=== PATIENT | male | born 1985 | race Caucasian/White ===

== ENCOUNTER 2020-01-07 17:38 | Emergency (ER) | payer OTHER, SELFPAY ==
[2020-01-07 17:50] VITALS: BP 146/86; PULSE 105; RESP 18; TEMP 36.6; O2SAT 99
--- NOTE | 2020-01-07 18:34 | ED.GENADULT ---
HPI - General Adult General Chief complaint: Urogenital-Male Stated complaint: discharge/pain when urinating Source: patient Mode of arrival: ambulatory Limitations: no limitations History of Present Illness HPI narrative: 34 y/o male. PMH includes: None reported. Presents to Urgent Care clinic today with acute complaints of yellow penile discharge and penile tip irritation for the past 3 days. He is requesting STD check , stating that his sexual partner has had some vaginal discharge and issues. Client admits to unprotected sexual intercourse. He denies fever, chills, abdominal pain, flank pain. No hematuria, No testicular pain or swelling. No external genital lesions. He is without additional acute c/o upon PE. Related Data Allergies Allergy/AdvReac Type Severity Reaction Status Date / Time No Known Allergies Allergy Verified 01/07/20 18:10 Review of Systems Review of Systems: Narrative: CONSTITUTIONAL: Denies fever, chills, sweats. EYES: Denies visual changes, redness, discharge. ENT: Denies rhinorrhea, congestion, sore throat, otalgia. CARDIOVASCULAR: Denies chest pain, palpitations, edema. RESPIRATORY: Denies dyspnea, wheezing, cough GASTROINTESTINAL: Denies abdominal pain, nausea, vomiting, diarrhea. GENITOURINARY: Positive abnormal discharge. SKIN: Denies rash or itching. MUSCULOSKELETAL: Denies acute back pain, joint pain, or myalgia. NEUROLOGIC: Denies numbness, or focal weakness. PSYCHIATRIC: Denies anxiety or depression. Exam Narrative: Exam Narrative: GENERAL: This is a well-nourished, well-developed patient, in no apparent distress. HEAD: normocephalic, atraumatic. EYES: PERRL. Sclera clear/white. Vision is grossly intact. EARS: External ears normal, auditory canals clear and without drainage, TMs normal without perforation. Hearing grossly intact. NOSE: External nose normal with no obvious nasal discharge, nares without redness, no rhinorrhea. THROAT: Mucous membranes moist, posterior pharynx clear. NECK: Neck supple, non-tender without lymphadenopathy, masses or thyromegaly. CARDIOVASCULAR: Regular rate and rhythm without murmurs, gallops, or rubs. RESPIRATORY: Clear to auscultation. Breath sounds equal bilaterally. No wheezes, rales, or rhonchi. GASTROINTESTINAL: Abdomen soft, non-tender, nondistended. Bowel sounds are active. No hepato-splenomegaly, or palpable masses. No guarding. SKIN: warm, intact with no suspicious lesions or rash, good texture and turgor. NEURO: awake, alert, and oriented to person, place and time. There were no obvious focal neurologic abnormalities. Steady gait EXTREMITIES: Normal range of motion. No edema. No calf tenderness. Negative Homans sign bilaterally. BACK: Nontender without deformity or crepitance. No flank tenderness. NEURO: Alert and oriented x4. Course Course Emergency Course: Laboratory studies reviewed. POC, AVS, and medication instructions have been reviewed. Safe sex practices also reviewed and advised. Client given additional resources for local Health dept. Vital Signs Vital signs: Vital Signs Temperature 36.6 C 01/07/20 17:50 Pulse Rate 105 H 01/07/20 17:50 Respiratory Rate 18 01/07/20 17:50 Blood Pressure 146/86 H 01/07/20 17:50 Pulse Oximetry 99 01/07/20 17:50 Temperature 36.6 C 01/07/20 17:50 Pulse Rate 105 H 01/07/20 17:50 Respiratory Rate 18 01/07/20 17:50 Blood Pressure 146/86 H 01/07/20 17:50 Pulse Oximetry 99 01/07/20 17:50 Medical Decision Making Differential Diagnosis Differential Diagnosis: Differential Diagnosis: Consideration of the following conditions may be warranted for the presenting problem, they are not final diagnoses: Cystitis, Nephritis, candidiasis, epididymitis, STD, syphilis, herpes Medical Records Medical records reviewed: Yes I reviewed the patient's medical records. Vital Signs Vital Signs: Vital Signs Temperature 36.6 C 01/07/20 17:50 Pulse Rate 105 H 01/07/20 17:50 Respi
[2020-01-07] MEDS: AZITHROMYCIN 250 MG TABLET 1000 MG PO (19:12)
[2020-01-07] MEDS: cefTRIAXone 250 MG VIAL IM (19:13)
[2020-01-07] MEDS: LIDOCAINE HCL 1% LOCAL INJ 20 ML VIAL IM (19:14)
== END 2020-01-07 19:30 | disposition home or self-care (01) ==
PROVIDERS: Emergency Provider Nurse Practitioner Adult Health; PCP Family Medicine
DX: Z20.2 Contact with and (suspected) exposure to infections with a predominantly sexual mode of transmission (principal); Z72.51 High risk heterosexual behavior
CPT/HCPCS: 81003; 87086; 87491; 87591; 87661; 96372; 99213; A9270; G0463; J0696

== ENCOUNTER 2020-09-14 11:26 | Emergency (ER) | payer OTHER, SELFPAY ==
[2020-09-14 11:32] VITALS: BP 144/94; PULSE 102; RESP 18; TEMP 36.9; O2SAT 100
[2020-09-14 11:52] VITALS: BP 144/94; PULSE 102; RESP 18; TEMP 36.9; O2SAT 100
--- NOTE | 2020-09-14 11:56 | ED.SKABFB ---
HPI - Skin/Abscess/Foreign Bdy General Chief complaint: Skin/Abscess/Foreign Body Stated complaint: left thigh bite/cyst on neck Time Seen by Provider: 09/14/20 11:56 Source: patient Mode of arrival: ambulatory Limitations: no limitations History of Present Illness HPI narrative: Nelson Juarez is a 35 yo male with with known hypertension, [facility] a bite on his left anterior thigh and enlarged lymph node on the left side underneath his chin. States he has no primary care doctor and has been traveling [place] and he lives in an . He is under a lot of stress and has not taken any blood pressure medication for quite a while Related Data Allergies Allergy/AdvReac Type Severity Reaction Status Date / Time No Known Allergies Allergy Verified 09/14/20 11:50 Review of Systems Review of Systems: CONSTITUTIONAL: Denies fever, chills, sweats. EYES: Denies visual changes, redness, discharge. ENT: Denies rhinorrhea, congestion, sore throat, otalgia. CARDIOVASCULAR: Denies chest pain, palpitations, edema. RESPIRATORY: Denies dyspnea, wheezing, cough GASTROINTESTINAL: Denies abdominal pain, nausea, vomiting, diarrhea. GENITOURINARY: Denies dysuria, hematuria, abnormal discharge SKIN: Denies rash or itching. NEUROLOGIC: Denies numbness, or focal weakness. PSYCHIATRIC: Denies anxiety or depression. Enlarged lymph node left submandibular, bite/reddened area anterior left thigh PMFSH Past Medical History Medical History Hypertension Family History Family History Other Diabetes mellitus Heart disease Social History Social History (Updated 09/14/20 @ 12:29 by Elizabeth Farah CNP) Smoking status: Never smoker Alcohol intake: current Comments At time of signature, I agree with nursing past medical, surgical, social and family history. There is no relevant family history pertinent to the presenting complaint. Exam Narrative: GENERAL: This is a well-nourished, well-developed patient, in mild distress. HEAD: normocephalic, atraumatic. EYES: Sclera clear/white. Vision is grossly intact. EARS: External ears normal, Hearing grossly intact. NOSE: External nose normal without nasal discharge, nares without redness, no rhinorrhea. THROAT: Mucous membranes moist, NECK: Neck supple, 2 x 2 enlarged submandibular lymph node, nontender CARDIOVASCULAR: Regular rate and rhythm without murmurs, gallops, or rubs. RESPIRATORY: Clear to auscultation. Breath sounds equal bilaterally. No wheezes, rales, or rhonchi. GASTROINTESTINAL: Abdomen soft, SKIN: warm, intact with no suspicious lesions or rash, good texture and turgor. Reddened area about 4 x 6 on the anterior portion of his left thigh NEURO: awake, alert, and oriented to person, place and time. There were no obvious focal neurologic abnormalities. Steady gait EXTREMITIES: Normal range of motion. BACK: Nontender without deformity Course Course Emergency Course: Patient comes with enlarged area under chin and painful indurated area on the left thigh Blood pressure is also elevated and he has no blood pressure medication Lisinopril restarted on patient Discussed cellulitis on his left thigh and treatment with Bactrim and Keflex Will need antibiotics and possible excision of that lymph node if it does not resolve under his left chin Referral to her primary care doctor Vital Signs Vital signs: Vital Signs Temperature 98.5 F 09/14/20 11:32 Pulse Rate 102 H 09/14/20 11:32 Respiratory Rate 18 09/14/20 11:32 Blood Pressure 144/94 H 09/14/20 11:32 Pulse Oximetry 100 09/14/20 11:32 Temperature 98.5 F 09/14/20 11:52 Pulse Rate 102 H 09/14/20 11:52 Respiratory Rate 18 09/14/20 11:52 Blood Pressure 144/94 H 09/14/20 11:52 Pulse Oximetry 100 09/14/20 11:52 MDM - Skin/Abscess/Foreign Bdy Differential Diagnosis
== END 2020-09-14 12:42 | disposition home or self-care (01) ==
PROVIDERS: Emergency Provider Nurse Practitioner
DX: L04.0 Acute lymphadenitis of face, head and neck (principal); L03.116 Cellulitis of left lower limb
CPT/HCPCS: 99213; G0463

== ENCOUNTER 2024-05-30 16:56 | Emergency (ER) | payer BC, MEDICAID, SELFPAY ==
--- OUTSIDE RECORDS SUMMARY | 2024-05-30 16:58 | XMS_ITS | Continuity of Care Document ---
Author Organization [facility]. If a dditional information is needed, contact Health Information Management at [phone] Address [address] [place] [address] Phone Care Team Providers Care Miter Grinder Operator Name Role Phone Unavailable Unavailable Unavailable Unavailable Unavailable Unavailable Unavailable Unavailable Unavailable Unavailable Unavailable Unavailable Unavailable Unavailable Unavailable Unavailable Unavailable Unavailable Unavailable Unavailable Unavailable Problems Alcohol abuse Onset:25-Dec-2021 Klaus Salazar MD Alcohol abuse Onset:07-Sep-2021 Ximena Kee MD Suicidal thoughts Onset:31-Aug-2021 Day Cary SCHREIBER Alcohol intoxication Onset:31-Aug-2021 Day Cary SCHREIBER Allergies and Adverse Reactions No Known Allergies(Allergy) Onset: 25-Dec-2021 No Known Allergies(Allergy) Onset: 18-Dec-2010 Social History Smoking Status Never smoked tobacco Recorded: 25-Dec-2021 Never smoked tobacco Recorded: 05-Sep-2021 Occasional tobacco smoker Recorded: 30-Aug-2021
--- OUTSIDE RECORDS SUMMARY | 2024-05-30 16:58 | XMS_ITS | Referral Summary ---
Author Organization [facility] Address [address] [place] [address] Care Team Providers Care Email Designer Name Role Phone Tad Metcalf MD Primary Care Provider [phone] Lea Bryant PT Unavailable Unavailable Lori Villeda LOAN ASSISTANT Unavailable Unavailable Fred Zamora MD Unavailable [phone] Allergies No known active allergies Medications diclofenac potassium (ZIPSOR) 25 mg capsule take 1 capsule by oral route 4 times every day 0 0 7 Active venlafaxine XR (EFFEXOR-XR) 75 mg 24 hr capsule take 1 capsule by oral route every day with food 0 0 7 Active metoprolol XL (TOPROL-XL) 100 mg 24 hr tablet take 1 tablet by oral route every day 0 0 7 Active aspirin 325 mg tablet take 1 tablet by oral route every day 0 0 7 Active aspirin 325 mg tablet Take 325 mg by mouth. 6 Active buPROPion XL (WELLBUTRIN XL) 150 mg 24 hr tablet 7 Active chlordiazePOXID E (LIBRIUM) 25 mg capsule Day 1: Take 50mg every 6 hours as needed for anxiety or withdrawal symptoms; if still anxious 1hr after taking 50mg, may take another 50mg; so, take 50mg to 100mg every six hours as needed. Day 2: 50-100mg every 8 hours as needed Day 3: 50-100mg every 12 hours as needed Day 4: 50-100mg at bedtime 6 Active clindamycin (CLEOCIN T) 1 % external solution 7 Active diclofenac (CATAFLAM) 50 mg tablet 7 Active lisinopril (PRINIVIL,ZESTR [place]) 5 mg tablet Take 5 mg by mouth. 6 Active metoprolol (LOPRESSOR) 100 mg tablet 7 Active metoprolol (LOPRESSOR) 50 mg tablet Take 100 mg by mouth. 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 Gender Identity Not on file Sexual Orientation Not on file Last Filed Vital Signs Vital Sign Reading Time Taken Comments Blood Pressure 138/76 07/25/2017 10:38 AM CDT Pulse 76 07/25/2017 10:38 AM CDT Temperature - - Respiratory Rate - - Oxygen Saturation - - Inhaled Oxygen Concentration - - Weight 109.8 kg (242 lb) 07/25/2017 10:38 AM CDT Height 188 cm (6' 2 ) 07/25/2017 10:38 AM CDT Body Mass Index 31.07 07/25/2017 10:38 AM CDT Plan of Treatment Not on file Insurance [facility] Care Teams Email Designer Relationship Specialty Start Date End Date Tad Metcalf MD PCP - General 04/20/16 Lea Bryant, PT Physical Therapist Physical Therapy 01/26/17 Lori Villeda, LOAN ASSISTANT Physical Therapist Physical Therapy 02/02/17 Fred Zamora MD [address] [place] [address] [address] [address] Surgeon Orthopedic Surgery 03/01/17
--- OUTSIDE RECORDS SUMMARY | 2024-05-30 16:58 | XMS_ITS | Clinical Summary ---
Author Organization [facility] Address [address] [place] [address] Care Team Providers Care Primer Inspector Name Role Phone Tad Metcalf MD Primary Care Provider [phone] Lea Bryant PT Unavailable Unavailable Lori Villeda LOGGING EQUIPMENT OPERATOR Unavailable Unavailable Fred Zamora MD Unavailable [phone] Allergies No known active allergies Medications diclofenac [...] 50 mg tablet 7 Active lisinopril (PRINIVIL,ZESTR DE) 5 mg tablet Take 5 mg by mouth. 6 Active metoprolol (LOPRESSOR) 100 mg tablet 7 Active metoprolol (LOPRESSOR) 50 mg tablet Take 100 mg by mouth. 6 Active venlafaxine XR (EFFEXOR-XR) 150 mg 24 hr capsule 8 Active zolpidem (AMBIEN) 10 mg tabletIndicatio ns:Sleep-Onset Insomnia 1 7 Active Active Problems No known active problems Surgical History Surgery Date Site/Laterality Comments TONSILLECTOMY Tonsillectomy Medical History Medical History Date Comments Hx Other Medical afib; Comments: [facility] 03/09/2016 - Hx Other Medical stomach ulcers; Comments: [facility] 03/09/2016 - Hx Other Medical adhd; Comments: [facility] 03/09/2016 - Social History Tobacco Use Types Packs/Day Years Used Date Smoking Tobacco: Never Smokeless Tobacco: Never Sex and Gender Information Value Date Recorded Sex Assigned at Not on file 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
--- OUTSIDE RECORDS SUMMARY | 2024-05-30 16:58 | XMS_ITS | Clinical Summary ---
Author Organization [facility] Address [address] [place] [address] Phone Care Team Providers Care Sample Clerk Name Role Phone Tad Metcalf MD Primary Care Provider [phone] Allergies Active Allergy Reactions Criticality Noted Date Comments Trazodone Other (see Comments) 04/06/2017 IRREGULAR HEART RATE- CAUSED HEART PALPITATIONS Medications aspirin 325 MG Tablet Take 1 Tab by mouth daily. 100 Tab 3 6 Active metoprolol tartrate (LOPRESSOR) 50 MG Tablet Take 2 Tabs by mouth 2 times daily. 180 Tab 3 6 Active chlordiazePOXID E (LIBRIUM) 25 MG Capsule Day 1: Take 50mg every 6 hours as needed for anxiety or withdrawal symptoms; if still anxious 1hr after taking 50mg, may take another 50mg; so, take 50mg to 100mg every six hours as needed. Day 2: 50-100mg every 8 hours as needed Day 3: 50-100mg every 12 hours as needed Day 4: 50-100mg at bedtime 40 Cap 0 6 Active lisinopril (PRINIVIL, ZESTRIL) 5 MG Tablet Take 1 Tab by mouth daily. 30 Tab 0 6 Active chlordiazePOXID E (LIBRIUM) 25 MG CapsuleIndicati ons:Alcohol abuse Take 1 Capsule by mouth 3 times daily as needed for Withdrawal or Anxiety. 30 Capsule 2 Active ondansetron (ZOFRAN) 4 MG Tablet Take 1 Tablet by mouth every 8 hours as needed for Nausea - 1st line. 15 Tablet 2 Active Active Problems Problem Noted Date Diagnosed Date Accidental heroin overdose 11/07/2015 Essential hypertension, benign 11/07/2015 Rapid atrial fibrillation 11/07/2015 Family History Medical History Relation Name Comments Alcohol Abuse Father Hypertension Father Relation Name Status Comments Father Social History Tobacco Use Types Packs/Day Years Used Date Smoking Tobacco: Former Smokeless Tobacco: Never Alcohol Use Standard Drinks/Week Comments No 0 (1 standard drink = 0.6 oz pur e alcohol) FORMER Sex and Gender Information Value Date Recorded Sex Assigned at Not on file Legal Sex Male 8:28 PM CDT Gender Identity Not on file Sexual Orientation Not on file Last Filed Vital Signs Vital Sign Reading Time Taken Comments Blood Pressure 137/94 12/19/2021 8:06 PM CDT Pulse 98 12/19/2021 8:06 PM CDT Temperature 36 C (96.8 F) 12/19/2021 8:06 PM CDT Respiratory Rate 20 12/19/2021 8:06 PM CDT Oxygen Saturation 97% 12/19/2021 8:06 PM CDT Inhaled Oxygen Concentration - - Weight 99.8 kg (220 lb) 12/19/2021 5:54 PM CDT Height 190.5 cm (6' 3 ) 12/19/2021 5:54 PM CDT Body Mass Index 27.5 12/19/2021 5:54 PM CDT Plan of Treatment Health Maintenance Due Date Last Done Comments Hepatitis C Virus (HCV) Screening 1984 TdaP Immunization 1984 Hepatitis B Immunization (1 of 3 - 19+ 3-dose series) 2003 Influenza Immunization (#1) 2023 SARS-COV-2 Immunization ( season) 2023 Respiratory Syncytial Virus (RSV) Immunization (Adult) (1 - 1-dose 75+ series) 2059 Meningococcal Immunization (ACWY) Aged Out No longer eligible based on patient's age to complete this topic Pneumococcal Immunization Combined Aged Out No longer eligible based on patient's age to complete this topic Rotavirus Immunization Aged Out No lo nger eligible based on patient's age to complete this topic Insurance MEDICAID [id number] Advance Directives * Full Code (Latest Code Status on File) Date Activated Date Inactivated Comments 11/06/2015 9:45 AM 11/07/2015 4:01 PM CPR-Full Luis Angel atment: FULL ARREST: Attempt Resuscitation/CPR wit intubation and mechanical ventilation. PRE-ARREST: Use entire range of life support measures to stabilize the patient. Care Teams Sample Clerk Relationship Specialty Start Date End Date Tad Metcalf MD [address] [facility] [address] [place] [address] PCP - General Family Medicine 02/22/17
[2024-05-30 16:59] VITALS: BP 153/79; PULSE 98; RESP 16; TEMP 36.6; O2SAT 99
[2024-05-30] MEDS: LORazepam (*CRX) 0.5 MG TABLET PO (17:24)
[2024-05-30 17:28] VITALS: BP 153/79; PULSE 77; RESP 18; O2SAT 98
--- OUTSIDE RECORDS SUMMARY | 2024-05-30 18:05 | XMS_ITS | Clinical Summary ---
Author Organization [facility] Address [address] [place] [address] Care Team Providers Care Journalist Name Role Phone Tad Metcalf MD Primary Care Provider [phone] Lea Bryant PT Unavailable Unavailable Lori Villeda LICENSED PLUMBER Unavailable Unavailable Fred Zamora MD Unavailable [phone] Allergies No known active allergies Medications diclofenac [...] 50 mg tablet 7 Active lisinopril (PRINIVIL,ZESTR MA) 5 mg tablet Take 5 mg by [...] Date Comments Hx Other Medical afib; Comments: [facility] 03/09/2016 - Hx Other Medical stomach ulcers; Comments: [facility] 03/09/2016 - Hx Other Medical adhd; Comments: [facility] 03/09/2016 - Social History Tobacco Use Types Packs/Day Years Used Date Smoking Tobacco: Never Smokeless Tobacco: Never Sex and Gender Information Value Date Recorded Sex Assigned at Not on file 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
--- OUTSIDE RECORDS SUMMARY | 2024-05-30 18:05 | XMS_ITS | Clinical Summary ---
Author Organization [facility] Address [address] [place] [address] Phone Care Team Providers Care Slunk Skin Curer Name Role Phone Tad Metcalf MD Primary Care Provider [phone] Allergies Active Allergy Reactions Criticality Noted Date [...] measures to stabilize the patient. Care Teams Slunk Skin Curer Relationship Specialty Start Date End Date Tad Metcalf MD [address] [facility] [address] [place] [address] PCP - General Family Medicine 02/22/17
--- OUTSIDE RECORDS SUMMARY | 2024-05-30 18:05 | XMS_ITS | Referral Summary ---
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
--- NOTE | 2024-05-30 18:12 | ED.ANXIETY ---
HPI - Anxiety General Chief Complaint: Anxiety Stated Complaint: anxiety attack Time Seen by Provider: 05/30/24 17:04 History of Present Illness HPI narrative: Patient has history of anxiety he and panic attacks has been having more panic attacks recently after starting testosterone therapy. Cut hydroxyzine home without much relief Related Data Allergies Allergy/AdvReac Type Severity Reaction Status Date / Time No Known Allergies Allergy Verified 05/30/24 17:24 Review of Systems Review of Systems: All systems reviewed & are unremarkable except as noted in HPI and below PMFSH Past Medical History Medical History Hypertension Family History Family History Other Diabetes mellitus Heart disease Social History Social History (Updated 09/14/20 @ 12:29 by Elizabeth Farah, KEDAR) Smoking status: Never smoker Alcohol intake: current Exam Narrative: EXAMINATION OF ORGAN SYSTEMS/BODY AREAS: Constitutional: Vital signs per nursing GENERAL: Appears anxious HEAD: Normal with no signs of head trauma. EYES: EOMI, conjunctiva normal ENT: Hearing grossly intact LUNGS: Nonlabored breathing. HEART: [Regular rate and rhythm] ABD: [Soft], [nontender to palpation] EXT: Normal range of motion SKIN: [No rashes or lesions.] NEURO: [Alert and oriented x 3. No gross focal sensory or strength deficits.] PSYCH: Anxious affect Course Vital Signs Vital signs: Vital Signs Temperature 97.8 F 05/30/24 16:59 Pulse Rate 98 05/30/24 16:59 Respiratory Rate 16 05/30/24 16:59 Blood Pressure 153/79 H 05/30/24 16:59 Pulse Oximetry 99 05/30/24 16:59 Oxygen Delivery Room Air 05/30/24 16:59 Temperature 97.8 F 05/30/24 16:59 Pulse Rate 77 05/30/24 17:28 Respiratory Rate 18 05/30/24 17:28 Blood Pressure 153/79 H 05/30/24 17:28 Pulse Oximetry 98 05/30/24 17:28 Oxygen Delivery Room Air 05/30/24 16:59 MDM - Anxiety MDM Narrative Medical decision making narrative: Patient with history of anxiety/panic attacks presenting here with symptoms consistent with panic attack. He declined EKG/CXR but is agreeable to dose of ativan; had tried hydroxyzine at home. On reevaluation patient is feeling better, resting comfortably, vital signs stable. I do feel patient is stable for discharge home at this time with followup to their doctor, and return here if symptoms return or worsen. Agreeable to outpatient management. Discharge Plan Discharge Clinical Impression: Panic attack Patient Disposition: Home Condition: Stable Instructions: Anxiety (ED) Additional Instructions: Please follow-up with your doctor, you can always return to the emergency room for any further issues. Patient Language: Ukrainian Prescriptions: No Action cephalexin 500 mg capsule 500 mg PO Q8H 10 Days Qty: 30 0RF sulfamethoxazole-trimethoprim 800-160 mg tablet 1 tablet PO Q12H Qty: 20 0RF lisinopril 5 mg tablet 5 mg PO DAILY Qty: 30 0RF Follow-up/Referrals: PHYSICIAN,CONCRETE BUILDING ASSEMBLER [Primary Care Provider] -
== END 2024-05-30 18:29 | disposition home or self-care (01) ==
LOC: ANHED 18:03
PROVIDERS: Emergency Provider Emergency Medicine
DX: F41.0 Panic disorder [episodic paroxysmal anxiety] (principal); I10 Essential (primary) hypertension
CPT/HCPCS: 99283; A9270

== ENCOUNTER 2024-07-11 09:25 | Emergency (ER) | payer BC, MEDICAID, SELFPAY ==
[2024-07-11 09:26] VITALS: BP 160/95; PULSE 89; RESP 16; TEMP 36.8; O2SAT 100
--- OUTSIDE RECORDS SUMMARY | 2024-07-11 09:28 | XMS_ITS | Clinical Summary ---
Author Organization [facility] Address [address] [place] [address] Care Team Providers Care Police Guard Name Role Phone Tad Metcalf MD Primary Care Provider [phone] Lea Bryant PT Unavailable Unavailable Lori Villeda DINKEY ENGINE FIRER Unavailable Unavailable Fred Zamora MD Unavailable [phone] Allergies No known active allergies Medications diclofenac [...] 50 mg tablet 7 Active lisinopril (PRINIVIL,ZESTR ID) 5 mg tablet Take 5 mg by [...] Date Comments Hx Other Medical afib; Comments: [facility] 03/09/2016 - Hx Other Medical stomach ulcers; Comments: [facility] 03/09/2016 - Hx Other Medical adhd; Comments: [facility] 03/09/2016 - Social History Tobacco Use Types Packs/Day Years Used Date Smoking Tobacco: Never Smokeless Tobacco: Never Sex and Gender Information Value Date Recorded Sex Assigned at Not on file 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
--- OUTSIDE RECORDS SUMMARY | 2024-07-11 09:28 | XMS_ITS | Clinical Summary ---
Author Organization [facility] Address [address] [place] [address] Phone Care Team Providers Care Personnel Quality Assurance Auditor Name Role Phone Tad Metcalf MD Primary Care Provider [phone] Allergies Active Allergy Reactions Criticality Noted Date [...] 5:54 PM CDT Height 190.5 cm (6' 3) 12/19/2021 5:54 PM CDT Body Mass Index [...] measures to stabilize the patient. Care Teams Personnel Quality Assurance Auditor Relationship Specialty Start Date End Date Tad Metcalf MD [address] [facility] [address] [place] [address] PCP - General Family Medicine 02/22/17
--- OUTSIDE RECORDS SUMMARY | 2024-07-11 09:28 | XMS_ITS | Referral Summary ---
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
--- NOTE | 2024-07-11 09:37 | ED.GENADULT ---
HPI - General Adult General Chief complaint: Anxiety Stated complaint: anxiety Time Seen by Provider: 07/11/24 09:32 Source: patient Mode of arrival: ambulatory Limitations: no limitations History of Present Illness HPI narrative: 39-year-old male with no significant past medical history presents to the ED with -- anxiety and restlessness no nausea/ vomiting/ Abdominal pain patient has been using Kratom for the past 6 months. He takes 15-20 g per day and quit taking it last night. Has not had any prior medical problems while using it. no chest pain or palpitation Onset (ago): day(s) ( One day) Relieving factors: none Exacerbating factors: none Associated symptoms: other ( anxiety) Treatments prior to arrival: none Related Data Allergies Allergy/AdvReac Type Severity Reaction Status Date / Time No Known Allergies Allergy Verified 05/30/24 17:24 Review of Systems Review of Systems: All systems reviewed & are unremarkable except as noted in HPI and below Constitutional: Constitutional: Reports as per HPI and Reports no additional constitutional complaints Eyes: Eyes: Reports as per HPI and Reports no additional eye complaints ENT: Reports system reviewed and no additional complaints, except as documented and Reports as per HPI Cardiovascular: Cardiovascular: Reports as per HPI and Reports no additional cardiovascular complaints Respiratory: Respiratory: Reports as per HPI and Reports no additional respiratory complaints Gastrointestinal: Gastrointestinal: Reports as per HPI and Reports no additional gastrointestinal complaints Genitourinary: Genitourinary: Reports no additional male genitourinary complaints and Reports as per HPI Musculoskeletal: Musculoskeletal: Reports no additional musculoskeletal complaints and Reports as per HPI Integumentary/Breasts: Skin/Breast: Reports system reviewed and no additional complaints, except as docu and Reports as per HPI Neurologic: Reports system reviewed and no additional complaints, except as documented and Reports as per HPI Psychiatric: Psychiatric: Reports anxiety Endocrine: Endocrine: Reports no additional endocrine complaints and Reports as per HPI Hematologic/Lymphatic: Hematologic/Lymphatic: Reports no additional hematologic/lymphatic complaints and Reports as per HPI Allergic/Immunologic: Allergic/Immunologic: Reports no additional allergic/immunologic complaints and Reports as per HPI [facility] Past Medical History Medical History Hypertension Family History Family History Other Diabetes mellitus Heart disease Social History Social History (Updated 07/11/24 @ 09:48 by Garth Wilson MD) Social History: Kratom use for past 6 months-- takes around 15 g orally Smoking status: Never smoker Alcohol intake: current Substance use type: sedatives Exam Narrative: blood pressure 160/95. Const: General: healthy appearing and no acute distress Nutritional Appearance: well nourished Orientation/consciousness: patient oriented x3 Limitations: no limitations HENMT: Head: normal to inspection Ears: external ears normal Face/Nose/Sinus: Normal external nose present Face and sinus: normal facial exam Eyes: Conjunctivae: conjunctivae normal Pupils: Equal, round and reactive pupils present EOM: EOMs intact bilaterally Direct Ophthalmoscopy: no photophobia Neck: Neck: normal visual inspection, no lymphadenopathy and no meningeal signs Chest: Chest palpation & inspection: normal inspection of the chest Resp: Effort & Inspection: normal respiratory effort Auscultation: clear to auscultation bilaterally Cardio: Rate: regular rate Rhythm: regular rhythm GI: GI Palp: Yes Soft to palpation Auscultation: normal bowel sounds Rectal Exam: normal sphincter tone : General: Yes no CVA tenderness Back/Spine/Pelvis: Back: no CVA tenderness Skin: General skin exam: normal color Rashes: no rashes Wounds: no wounds Neuro: General: patient oriented x3, moves all extremities, no meningeal signs, no focal motor deficits and CN's II-XI intact bilaterally Cranial nerves: Yes Nystagmus not present Speech: normal speech Extrem: General: normal to inspection and no clubbing, cyanosis or edema Psych: Mental Status: mental status grossly normal Affect: Anxious affect present Attitude: cooperative Other: Hallucinations/delusions. Feeling of impending doom Course Course Emergency Course: anxiety Kratom withdrawal refused blood work patient is hypertensive. He had a history of hypertension which resolved after he started exercising and eating healthy. He has not had his blood pressure medication for a while. Offered to refill this prescription but he refused. Vital Signs Vital signs: Vital Signs Temperature 36.8 C 07/11/24 09:26 Pulse Rate 89 07/11/24 09:26 Respiratory Rate 16 07/11/24 09:26 Blood Pressure 160/95 H 07/11/24 09:26 Pulse Oximetry 100 07/11/24 09:26 Oxygen Delivery Room Air 07/11/24 09:26 Temperature 36.8 C 07/11/24 09:26 Pulse Rate 89 07/11/24 09:26 Respiratory Rate 16 07/11/24 09:26 Blood Pressure 160/95 H 07/11/24 09:26 Pulse Oximetry 100 07/11/24 09:26 Oxygen Delivery Room Air 07/11/24 09:26 Medical Decision Making MDM Narrative Medical decision making narrative: anxiety kratom withdrawal Differential Diagnosis Differential Diagnosis: alcohol withdrawal Vital Signs Vital Signs: Vital Signs Temperature 36.8 C 07/11/24 09:26 Pulse Rate 89 07/11/24 09:26 Respiratory Rate 16 07/11/24 09:26 Blood Pressure 160/95 H 07/11/24 09:26 Pulse Oximetry 100 07/11/24 09:26 Oxygen Delivery Room Air 07/11/24 09:26 Temperature 36.8 C 07/11/24 09:26 Pulse Rate 89 07/11/24 09:26 Respiratory Rate 16 07/11/24 09:26 Blood Pressure 160/95 H 07/11/24 09:26 Pulse Oximetry 100 07/11/24 09:26 Oxygen Delivery Room Air 07/11/24 09:26 Discharge Plan Discharge Clinical Impression: Acute anxiety Patient Disposition: Home Condition: Stable Instructions: Antibiotic Form, Anxiety (ED) Patient Language: Estonian Prescriptions: New chlordiazepoxide HCl 25 mg capsule 25 mg PO Q8H PRN (Reason: anxiety) Qty: 14 0RF No Action cephalexin 500 mg capsule 500 mg PO Q8H 10 Days Qty: 30 0RF sulfamethoxazole-trimethoprim 800-160 mg tablet 1 tablet PO Q12H Qty: 20 0RF lisinopril 5 mg tablet 5 mg PO DAILY Qty: 30 0RF Follow-up/Referrals: UNKNOWN,DOCTOR [Primary Care Provider] - Time of Disposition: 09:52
--- NOTE | 2024-07-11 09:50 | PC.NURSE ---
dr crockett in room with pt, pt declined lab work .
--- OUTSIDE RECORDS SUMMARY | 2024-07-11 09:59 | XMS_ITS | Clinical Summary ---
Author Organization [facility] Address [address] [place] [address] Care Team Providers Care Transportation Department Head Name Role Phone Tad Metcalf MD Primary Care Provider [phone] Lea Bryant PT Unavailable Unavailable Lori Villeda PIPING DRAFTER Unavailable Unavailable Fred Zamora MD Unavailable [phone] Allergies No known active allergies Medications diclofenac [...] 50 mg tablet 7 Active lisinopril (PRINIVIL,ZESTR SC) 5 mg tablet Take 5 mg by [...] Date Comments Hx Other Medical afib; Comments: [facility] 03/09/2016 - Hx Other Medical stomach ulcers; Comments: [facility] 03/09/2016 - Hx Other Medical adhd; Comments: [facility] 03/09/2016 - Social History Tobacco Use Types Packs/Day Years Used Date Smoking Tobacco: Never Smokeless Tobacco: Never Sex and Gender Information Value Date Recorded Sex Assigned at Not on file 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
--- OUTSIDE RECORDS SUMMARY | 2024-07-11 09:59 | XMS_ITS | Referral Summary ---
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
--- OUTSIDE RECORDS SUMMARY | 2024-07-11 09:59 | XMS_ITS | Clinical Summary ---
Author Organization [facility] Address [address] [place] [address] Phone Care Team Providers Care Corner Bead Operator Name Role Phone Tad Metcalf MD Primary Care Provider [phone] Allergies Active Allergy Reactions Criticality Noted Date [...] measures to stabilize the patient. Care Teams Corner Bead Operator Relationship Specialty Start Date End Date Tad Metcalf MD [address] [facility] [address] [place] [address] PCP - General Family Medicine 02/22/17
[2024-07-11] MEDS: ALPRAZolam (*CRX) 0.5 MG TABLET PO (10:05)
== END 2024-07-11 10:09 | disposition home or self-care (01) ==
PROVIDERS: Emergency Provider Internal Medicine Critical Care Medicine; PCP Internal Medicine
DX: F41.9 Anxiety disorder, unspecified (principal); I10 Essential (primary) hypertension
CPT/HCPCS: 99283; A9270

== ENCOUNTER 2024-11-11 12:26 | Emergency (ER) | payer BC, MEDICAID, SELFPAY ==
[2024-11-11 12:27] VITALS: BP 148/91; PULSE 88; RESP 20; TEMP 36.9; O2SAT 98
--- NOTE | 2024-11-11 12:31 | ED_ITS ---
HPI - General Adult General Chief complaint: Unspecified Stated complaint: withdrawal from cratum Time Seen by Provider: 11/11/24 12:31 Source: patient Mode of arrival: ambulatory Limitations: no limitations History of Present Illness HPI narrative: 39 years old white male, healthy otherwise except intermittent lower back pain, came to the ED complaining of restlessness, anxiety like feeling after stopping taking kratom 15 hours ago.. Patient is telling me that he been using kratom for the last 2 months for lower back pain and stops suddenly 15 hours ago. Patient is telling me that he had similar symptoms few months ago After quitting Kratom , resolved immediately on Librium.. Patient denying suicidal or homicidal ideation, feeling agitated, restless. Related Data Allergies Allergy/AdvReac Type Severity Reaction Status Date / Time No Known Allergies Allergy Verified 11/11/24 12:27 Review of Systems Review of Systems: All systems reviewed & are unremarkable except as noted in HPI and below PMFSH Past Medical History Medical History Hypertension Family History Family History Other Diabetes mellitus Heart disease Social History Social History Social History: Kratom use for past 6 months-- takes around 15 g orally Smoking status: Never smoker Alcohol intake: current Substance use type: sedatives Exam Narrative: General appearance: Well-developed, well-nourished , anxious Skin: Normal color Head: Normocephalic, nontraumatic Eyes: Clear conjunctiva ENT: Oropharynx normal, ears normal, nose normal Neck: Supple, nontender Chest and respiratory: Airway patent, no respiratory distress, no accessory muscle use Heart: Regular rate/rhythm Abdomen: Soft, nontender, no organomegaly, quiet bowel sounds Vascular: Normal peripheral pulses, normal capillary refill. Musculoskeletal: Normal range of motion, nontender back Neurologic: Alert and oriented ?3, EYELET PUNCH OPERATOR is normal as tested, no gross motor deficit Course Vital Signs Vital signs: Vital Signs Temperature 36.9 C 11/11/24 12:27 Pulse Rate 88 11/11/24 12:27 Respiratory Rate 20 11/11/24 12:27 Blood Pressure 148/91 H 11/11/24 12:27 Pulse Oximetry 98 11/11/24 12:27 Oxygen Delivery Room Air 11/11/24 12:27 Temperature 36.9 C 11/11/24 12:27 Pulse Rate 88 11/11/24 12:27 Respiratory Rate 20 11/11/24 12:27 Blood Pressure 148/91 H 11/11/24 12:27 Pulse Oximetry 98 11/11/24 12:27 Oxygen Delivery Room Air 11/11/24 12:27 Medical Decision Making MDM Narrative Medical decision making narrative: patient came with anxiety like symptoms, claiming that Librium works the best when he had similar symptom in past. kratom withdrawal treatment is buprenorphine-naloxone. patient is telling me that he have history of anxiety and depression. And probably his symptom has nothing to do with kratom. My plan to give the patient the same Librium as last visit in June 2024. Patient declined any blood workup or imaging at this time. Patient keeps coming for the same symptoms, drug-seeking behavior will be at the top of my list Vital Signs Vital Signs: Vital Signs Temperature 36.9 C 11/11/24 12:27 Pulse Rate 88 11/11/24 12:27 Respiratory Rate 20 11/11/24 12:27 Blood Pressure 148/91 H 11/11/24 12:27 Pulse Oximetry 98 11/11/24 12:27 Oxygen Delivery Room Air 11/11/24 12:27 Temperature 36.9 C 11/11/24 12:27 Pulse Rate 88 11/11/24 12:27 Respiratory Rate 20 11/11/24 12:27 Blood Pressure 148/91 H 11/11/24 12:27 Pulse Oximetry 98 11/11/24 12:27 Oxygen Delivery Room Air 11/11/24 12:27 Critical Care Time Critical Care Time Critical Care Time: No Discharge Plan Discharge Clinical Impression: Anxiety Patient Disposition: Home Condition: Stable Instructions: Anxiety (ED) Additional Instructions: Return if symptoms are worsening , call your family physician for appointment, take Tylenol as as needed for aches and pain, continue home medications. Stop taking Kratom Patient Language: Hungarian Prescriptions: New chlordiazepoxide HCl 25 mg capsule 25 mg PO TID PRN (Reason: anxiety) Qty: 14 0RF No Action chlordiazepoxide HCl 25 mg capsule 25 mg PO Q8H PRN (Reason: anxiety) Qty: 14 0RF cephalexin 500 mg capsule 500 mg PO Q8H 10 Days Qty: 30 0RF sulfamethoxazole-trimethoprim 800-160 mg tablet 1 tablet PO Q12H Qty: 20 0RF lisinopril 5 mg tablet 5 mg PO DAILY Qty: 30 0RF Follow-up/Referrals: Tad Nunn MD [Physician, Internal Medicine]
[2024-11-11 12:53] VITALS: BP 148/91; PULSE 88; RESP 20; TEMP 36.9; O2SAT 98
== END 2024-11-11 12:53 | disposition home or self-care (01) ==
PROVIDERS: Emergency Provider Emergency Medicine; Referring Provider Family Medicine
DX: F41.9 Anxiety disorder, unspecified (principal); F19.939 Other psychoactive substance use, unspecified with withdrawal, unspecified; I10 Essential (primary) hypertension
CPT/HCPCS: 99283